=== PATIENT | female | born 1965 | race Caucasian/White ===

== ENCOUNTER 2016-04-21 08:02 | Day surgery (SDC) | payer OTHER ==
[2016-04-06 08:54] VITALS: BMI 32.0
[~2016-04-21] VITALS: Ht 165.1 cm; Wt 89.1 kg
[~2016-04-21 08:02] MED LIST: ATROPINE SULFATE 0.1 MG/ML 5ML SYR IV PRN; CEFAZOLIN 2000 MG/60 ML D5W 60 ML IV SCH; DILT120C68 PO; EpHEDrine SULFATE INJ 50 MG/ML AMP IV PRN; HYDR25TA4 PO; HYDROmorphone INJ 1 MG/ML SYR IV PRN; LACTATED RINGER'S 1000ML IV SCH; ONDANSETRON INJ 2 MG/ML 2 ML VIAL IV PRN; POTA20TA16 PO
[2016-04-21 08:37] VITALS: BP 148/88; PULSE 59; TEMP 36.9; O2SAT 98; Ht 165.1 cm; Wt 89.1 kg
[2016-04-21] MEDS ORDERED: ONDANSETRON INJ 2 MG/ML 2 ML VIAL ONE (08:59)
[2016-04-21] MEDS ORDERED: GLYCOPYRROLATE INJ 0.2 MG/ML VIAL ONE ×2 (08:59→10:40)
[2016-04-21] MEDS ORDERED: NEOSTIGMINE METHYLSULFATE 1 MG/ML 10ML VIAL ONE (08:59)
[2016-04-21] MEDS ORDERED: PROPOFOL IV EMULSION 10 MG/ML 20 ML VIAL IV ONE (08:59)
[2016-04-21] MEDS ORDERED: FENTANYL CITRATE INJ 50 MCG/1 ML 2 ML VIAL ONE (08:59)
[2016-04-21] MEDS ORDERED: ROCURONIUM BROMIDE 10 MG/ML 5 ML VIAL ONE (08:59)
[2016-04-21] MEDS ORDERED: MIDAZOLAM HCL 1 MG/ML 2ML VIAL ONE (08:59)
[2016-04-21] MEDS ORDERED: LIDOCAINE HCL 2% 2 ML VIAL (20MG/ML) ONE (08:59)
--- NOTE | 2016-04-21 09:50 | History and Physical ---
History & Physical Date Apr 21, 2016. Chief Complaint LBP and R leg pain History of Present Illness The patient is a 50 year old female with complaints of above for over 6 mos who failed outpatient management. She has radicular pain in S1 distr. no weakness , numbness in same distr. no incontinence. MRI shows R L5-S1 HNP. Past Medical/Surgical History HTN tonsillectomy Additional History Hepatic Disease: No Endocrine Disorder: No Kidney Disease: No Hypertension: Yes Heart Disease: No Bleeding Tendencies: No Infectious Diseases: No Allergies Coded Allergies: Prednisone (Verified Allergy, Mild, SKIN TURNED RED, 04/21/16) Home Medications Scheduled Diltiazem Hcl Ext Rel (Tiazac), 1.5 TAB PO BID Hydrochlorothiazide (Hctz), 25 MG PO QAM Potassium Ext Rel (Klor-Con), 20 MEQ PO QAM Physical Examination Skin: warm/dry Eyes: normal inspection ENT: normal ENT inspection Head: normocephalic, atraumatic Neck: supple Respiratory/Chest: lungs clear, no respiratory distress Cardiovascular: regular rate, rhythm Back: normal inspection Extremities: normal inspection, normal range of motion Neurologic/Psych: no motor/sensory deficits, alert, normal reflexes, oriented x 3 Diagnosis R L5-S1 HNP Plan of Treatment R L5-S1 microdiscectomy
[2016-04-21] MEDS ORDERED: BUPIVACAINE/EPINEPHRINE 0.5% MPF 1:200,000 30 ML VIAL INJ ONE (10:48)
[2016-04-21] MEDS ORDERED: THROMBIN FOR SOLN 20000 UNIT KIT TOP ONE (10:48)
[2016-04-21] MEDS ORDERED: FLOSEAL HEMOSTATIC MATRIX 5ML TOP ONE (10:59)
[2016-04-21] MEDS ORDERED: BACITRACIN 50000 UNIT VIAL IR ONE (10:59)
[2016-04-21] MEDS ORDERED: SODIUM CHLORIDE 0.9% 1000ML 1,000 ML IV SCH (11:02)
--- NOTE | 2016-04-21 11:02 | [facility] Post Operative Brief Note ---
Immediate Operative Summary Operative Date Apr 21, 2016. Pre-Operative Diagnosis L5-S1 Herniated Nucleus Pulposus, right side Post-Operative Diagnosis same as preop Procedure(s) Performed L5-S1 Microdiscectomy, right Surgeon Dr. Jamari Sainz Web Consultant Surgeon(s) Ramón Kirkpatrick PA-C Estimated Blood Loss 25 ml Findings dict Specimens none
[2016-04-21] MEDS ORDERED: OXYC-57 PO (11:03)
--- NOTE | 2016-04-21 11:05 | Discharge Instructions ---
Discharge Instructions Admission Reason for Admission: Herniated Nuclues Pulposus Discharge Discharge Diagnosis / Problem: hnp Discharge Goals Goal(s): Decrease discomfort Activity Recommendations Activity Limitations: per Instructions/Follow-up section . Instructions / Follow-Up Instructions / Follow-Up ACTIVITY RECOMMENDATIONS: SELF CARE INSTRUCTIONS AFTER A LAMINECTOMY 1. No prolonged sitting (less than 30 minutes for the first 3 weeks after surgery). 2. No bending, lifting more than 5 pounds, or twisting (roll like a log when turning in bed). 3. You may shower 3 days after surgery if no drainage from wound. Thoroughly dry wound. Do not soak in the tub. 4. Please walk as much as you can for exercise. Gradually increase the distance that you walk as your endurance increases. 5. You may drive in 7-10 days if you are comfortable and no longer requiring pain medications. SPECIAL CARE INSTRUCTIONS: VERY IMPORTANT TO READ AND REVIEW A. Your surgical incision has been closed with a cosmetic suture under the skin that will dissolve in about 6 weeks. In 14 days, you can use a pair of clean scissors and cut the suture that is left outside of the skin at the ends of your incision. B. Complications are uncommon, but please contact us if you have any signs or symptoms of: 1. wound infection (fever higher than 102.5 degrees F, redness, separation of wound, drainage, or increasing pain from the incision) 2. blood clots in legs (pain, swelling, redness and warmth in legs) 3. urinary tract infection (fever higher than 102.5 degrees, burning upon urination or increased frequency of urination) 4. nerve problems (inability to walk on your toes or heels, numbness, loss of bowel or bladder control) 5. any other symptoms that concern you. C. Please call the office at if you have any concerns or questions about your operation or recovery. MANAGING PAIN AFTER SPINAL SURGERY 1. Narcotic medication is intended for short-term use and will be provided for surgical pain. Surgical pain usually lasts for a period of 4-6 weeks. Narcotic medication includes Percocet, Vicodin, Darvocet, Tylenol #3 or Lortab. 2. Longer-term pain is more appropriately treated with non-narcotic medication such as Tylenol ES. 3. Muscle spasm is not appropriately treated with narcotics. Muscle relaxers such as Soma, Flexeril or Skelaxin can be used along with Tylenol ES. 4. Remember that we all live with some "aches and pains". This is not unusual or uncommon after an injury or as we get older. 5. We will provide appropriate medication within the normal guidelines of their prescribed use. We will also be very cautious and aware of potential abuse and extended duration of patients' medication needs. 6. Please allow 2-3 days to process refills. Prescriptions will not be mailed but must be picked up at the office. FOLLOW UP VISIT: Keep your scheduled follow-up appointment. Any questions, please call the office at . Current Hospital Diet Patient's current hospital diet: Discharge Diet Recommended Diet: Regular Diet Procedures Procedures Performed: L5-S1 Microdiscectomy, right Pending Studies Studies pending at discharge: no Medical Emergencies . Who to Call and When: Medical Emergencies: If at any time you feel your situation is an emergency, please call 911 immediately. . Non-Emergent Contact Non-Emergency issues call your: Specialist . "Provider Documentation" section prepared by Jamari Sainz. VTE Core Measure Inpt VTE Proph given/why not?: Alma Dey, SCD's
[2016-04-21] MEDS ORDERED: OXYCODONE/ACETAMINOPHEN 5-325 TAB PO PRN ×2 (11:15)
[2016-04-21] MEDS ORDERED: ONDANSETRON INJ 2 MG/ML 2 ML VIAL IV PRN (11:15)
[2016-04-21] MEDS: FENTANYL CITRATE INJ 50 MCG/1 ML 2 ML VIAL IV PRN ×4 (11:26→11:41)
--- NOTE | 2016-04-21 12:04 | Anesthesiology Progress Note ---
Anesthesia Post Op Note Date & Time Apr 21, 2016 at 12:04 Vital Signs Pain Intensity: 3 Vital Signs Past 12 Hours Date Time Temp Pulse Resp B/P Pulse Ox O2 Delivery O2 Flow Rate FiO2 04/21/16 11:55 36.3 50 14 117/69 100 Nasal Cannula 2 04/21/16 11:45 50 12 106/65 92 Room Air 04/21/16 11:35 52 13 150/111 100 Mask 10 04/21/16 11:25 54 13 152/97 100 Mask 10 04/21/16 11:16 36.1 82 15 148/89 100 Mask 10 04/21/16 08:37 36.9 59 20 148/88 98 Room Air Notes Mental Status: alert / awake / arousable, participated in evaluation Pt Amnestic to Procedure: Yes Nausea / Vomiting: adequately controlled Pain: adequately controlled Airway Patency, RR, SpO2: stable & adequate BP & HR: stable & adequate Hydration State: stable & adequate Anesthetic Complications: no major complications apparent
--- NOTE | 2016-04-21 13:18 | OPERATIVE REPORT ---
DATE OF OPERATION: 04/21/2016 PREOPERATIVE DIAGNOSES: Right L5-S1 herniated nucleus pulposus. POSTOPERATIVE DIAGNOSIS: Same. PROCEDURES: Right L5-S1 microdiscectomy. SURGEON: Dr. Sainz. DEVELOPMENT COACH: Ramón Kirkpatrick PA-C. Please note he participated in all portions of the procedure and was critical for performance of the procedure and participated in positioning, prepping, draping, retraction, and wound closure. ANESTHESIA: General endotracheal anesthesia. COMPLICATIONS: None. ESTIMATED BLOOD LOSS: Minimal. OPERATION AND FINDINGS: PROCEDURE: After identification of patient and operative level, she was brought to the OR where she underwent induction of general anesthesia. She was then positioned prone on Kenneth OR table with all bony prominences well padded. Care was taken to avoid pressure on the periorbital area. Lumbosacral area was sterilely prepped and draped in usual fashion. Antibiotics were administered. Time-out was performed. Level was confirmed and skin incision was localized with lateral fluoroscopy and a spinal needle. I infiltrated skin with 0.5% Marcaine with epinephrine, made skin incision over the spinous process of L5 and S1 and exposed the right L5-S1 interlaminar window. I confirmed level with fluoroscopy and marked the operative level, placed a belt measurer retractor and then created a small laminotomy under the caudal edge of L5, removing ligamentum flavum and identified the traversing nerve root. I mobilized it medially, protected with a nerve retractor and identified the paracentral disc protrusion and made a vertical annulotomy. I removed a single large disc fragment deep to the annulus that was distending it. This appeared to decompress the nerve root. I then explored the disc space and found no further free fragments. I irrigated with bacitracin solution, applied FloSeal and closed in layered fashion. All sponge and needle counts were correct at the end of the case. I attest to the content of the Intraoperative Record and any orders documented therein. Any exceptio ns are noted below.
[2016-04-21 13:39] VITALS: BP 127/80; PULSE 52; TEMP 36.5; O2SAT 96
--- NOTE | 2016-04-21 14:57 | DIAGNOSTIC IMAGING REPORT ---
INTRAOPERATIVE LUMBAR SPINE SINGLE VIEW CLINICAL HISTORY: RT L5-S1 MICRODISCECTOMY COMPARISON STUDY: No previous studies for comparison. FINDINGS: 4.1 seconds of fluoroscopic time was utilized. A single intraoperative fluoroscopic spot images provided for interpretation. There is a surgical probe with the posterior elements at the L5-S1 level. IMPRESSION: Intraoperative radiograph demonstrating a surgical probe at the L5-S1 level posteriorly Electronically signed by: Jeffrey Dial M.D. 04/21/2016 2:56 PM Dictated Date/Time: 04/21/2016 2:55 PM
== END 2016-04-21 13:45 | disposition home or self-care (01) ==
LOC: EDBD → C.ACU 08:02
PROVIDERS: ATTEND Orthopaedic Surgery Orthopaedic Surgery of the Spine
DX: M51.27 Other intervertebral disc displacement, lumbosacral region (principal); I10 Essential (primary) hypertension; Z90.89 Acquired absence of other organs; Z68.32 Body mass index [BMI] 32.0-32.9, adult; F17.200 Nicotine dependence, unspecified, uncomplicated